=== PATIENT | female | born 1990 | race African-American/Black ===

== ENCOUNTER 2019-02-23 17:05 | Day surgery (SDC) | payer OTHER ==
[2019-02-23 17:41] VITALS: BP 140/79; TEMP 98.6
[2019-02-23 17:43] VITALS: BMI 27.6
[2019-02-23] MEDS ORDERED: hydrALAZINE 20 MG/ML VIAL SLOW IVP PRN (18:54)
--- NOTE | 2019-02-23 19:18 | ER ---
DATE OF SERVICE: 02/23/2019 PRESENTING COMPLAINT: A 35 weeks' gestation with contractions, prior section. HISTORY OF PRESENT ILLNESS: Ms. Taveras is a 28-year-old, 2, para 1 with an EDC placing her at 35 weeks' gestation. Antepartum record is not available on the unit. The patient is scheduled for repeat on March 22. She reports that she was seen in the office by Dr. Michel and checked by him and noted to be 2, 50, and -2. She denies bleeding. She denies leakage of fluid. She states she has had some lower abdominal pain and cramping throughout the day. She reports active fetus. MAILROOM COURIER HISTORY: As noted. Antepartum record not available. The patient is uncertain of her blood type or group B Streptococcus status. PAST MEDICAL HISTORY: None. PAST SURGICAL HISTORY: . ALLERGIES: NONE. MEDICATIONS: vitamins. SOCIAL HISTORY: Denies tobacco, alcohol, or IV drug use. FAMILY HISTORY: Noncontributory. REVIEW OF SYSTEMS: Noncontributory. PHYSICAL EXAMINATION: GENERAL: Black female. VITAL SIGNS: Temperature 98.6, pulse 67, respirations 18, blood pressure 140/79. HEENT: Within normal limits. LUNGS: Clear to auscultation bilaterally. HEART: Regular rhythm. ABDOMEN: Soft and nontender. 35 cm. FHTs 140s. PELVIC: Vulva without lesions. Vagina without discharge. No fluid noted. Cervix; posterior, 1 to 1-1/2, 40, and -2, cephalic, ballots with ease. EXTREMITIES: Without clubbing, cyanosis, or edema. monitoring was carried out for greater than 30 minutes. Occasional uterine irritability was noted q.5 to 15 minutes. No regular contractions were noted. Category 1 heart rate tracing noted. IMPRESSION: Discomforts of at 35 weeks' gestation. No evidence of active labor. No evidence of rupture of membranes. PLAN: Discharge home. ER precautions. Keep scheduled followup with Dr. Michel. Job ID: [id number]
== END 2019-02-23 18:59 | disposition home or self-care (01) ==
LOC: L&D/OP 17:05
PROVIDERS: ATTEND Obstetrics & Gynecology
DX: O26.893 Other specified pregnancy related conditions, third trimester (principal); R10.30 Lower abdominal pain, unspecified; Z3A.35 35 weeks gestation of pregnancy

== ENCOUNTER 2019-03-03 13:05 | Day surgery (SDC) | payer OTHER ==
[2019-03-03 13:43] VITALS: BP 138/80; TEMP 98.2; BMI 27.6
[2019-03-03] MEDS ORDERED: hydrALAZINE 20 MG/ML VIAL SLOW IVP PRN (14:08)
[2019-03-03 14:27] LABS: Bilirubin Negative (Negative); Blood, Urine Negative (Negative); Clarity Clear (Clear); Glucose, Urine (Dipstick) Normal (Negative); Leukocyte Negative Leu/uL (Negative); Nitrite Negative (Negative); Protein, Urine (Dipstick) Negative (Neg-Trace); RBC/HPF 0-3 HPF (0-3); Urobilinogen Normal mg/dL (Less than 2); WBC/HPF 0-3 HPF (0-3)
[2019-03-03 14:35] LABS: Bacteria/HPF 1+ HPF (None Seen)
[2019-03-03 14:36] LABS: Urine Culture Reflex No No
--- NOTE | 2019-03-03 22:35 | HP ---
CHIEF COMPLAINT: Right flank pain. HISTORY OF PRESENT ILLNESS: This is a 28-year-old, G2, P1, at 36 weeks and 4 days, who complains of 1-week history of progressively worsening right flank pain that radiates down to her right lower quadrant and right groin. She states it doubles her over and has a constant sensation that is sharp. She moves around and changes position and it does not help relieve the pain. Hot baths or showers do not relieve the pain. The patient has not taken Tylenol. She was seen here one week earlier and found that she had normal aches and pains of . She denies any urinary symptoms including urinary frequency, dysuria, urgency, incontinence, urinary odor, or abnormal color. She has not had any UTIs this . OB HISTORY: G2, P1, prior x1 secondary to non-reassuring heart tones. She has had good care with Dr. Michel this . She is dated by last menstrual period consistent with first trimester ultrasound. She denies any other complications of this and has had normal ultrasounds and labs. PAST MEDICAL HISTORY: Denies. PAST SURGICAL HISTORY: x1. SOCIAL HISTORY: Negative x3. FAMILY HISTORY: Noncontributory. ALLERGIES: NO KNOWN DRUG ALLERGIES. MEDICATIONS: vitamins. PHYSICAL EXAMINATION: VITAL SIGNS: Blood pressure 127/73, heart rate 89, temp 98.8, and saturation 100% on room air. GENERAL: No acute distress. CARDIAC: Regular rate and rhythm. LUNGS: Clear to auscultation bilaterally. ABDOMEN: Soft, nontender, gravid. She has some mild flank tenderness on the right side. It is not acutely tender, however. She has no rebound or guarding. MUSCULOSKELETAL: She has no muscular weakness or lower extremity edema. : On external monitor, the patient has a baseline of 140 with moderate noqe-yv-lbfi variability. Positive accelerations. No decelerations. TOCO shows no contractions. Clean-catch urinalysis shows squames and 1+ bacteria. No leukocytes, nitrites, or blood. ASSESSMENT AND PLAN: This is a 28-year-old, G2, P1, at 36 weeks and 4 days with prior section x1, presenting with renal colic. UA has no evidence of nephrolithiasis or complicated urinary tract infection. She has a benign exam. Advise patient of physiologic and anatomic changes during , predisposing patient to a right-sided symptoms including renal colic. Recommended relief of pressure on the right side by lying on the left side or maintaining position on all fours to relieve the pressure. Also, the patient can use Tylenol. The patient was given #10 of Tylenol No.3 p.r.n. severe pain and was given ER warnings. FHTs were reassuring, and the patient will follow up with Dr. Michel as scheduled. Job ID: [id number] [facility]
== END 2019-03-03 15:40 | disposition home or self-care (01) ==
LOC: L&D/OP 13:05
PROVIDERS: ATTEND Obstetrics & Gynecology
DX: O99.89 Other specified diseases and conditions complicating pregnancy, childbirth and the puerperium (principal); N23 Unspecified renal colic; O34.219 Maternal care for unspecified type scar from previous cesarean delivery; Z3A.36 36 weeks gestation of pregnancy
CPT/HCPCS: 81001; 87086; 99282

== ENCOUNTER 2019-03-17 09:55 | Inpatient (IN) | payer OTHER ==
[2019-03-17 10:19] VITALS: BMI 28.1
[2019-03-17] MEDS ORDERED: Promethazine HCl 25 MG/ML VIAL IM PRN ×4 (10:44→16:16)
[2019-03-17] MEDS ORDERED: hydrALAZINE 20 MG/ML VIAL SLOW IVP PRN (10:44)
[2019-03-17] MEDS ORDERED: Ondansetron PF 4 MG/2 ML Vial IVP PRN ×3 (10:44→16:16)
[2019-03-17] MEDS ORDERED: CEFAZOLIN 2 GM in Premix Bag 1 BAG IVPB SCH (10:45)
[2019-03-17] MEDS ORDERED: Lactated Ringer's 1,000 ML IV SCH (10:45)
[2019-03-17] MEDS ORDERED: Bicitra 30 ML UDCUP PO SCH (10:45)
[2019-03-17 10:56] LABS: Hemoglobin 13.8 g/dL (12.0-16.0); Mean Corpuscular Volume 90.2 fL (78.0-98.0); Red Blood Cell (RBC) Count 4.38 mill/uL (4.20-5.40); White Blood Cell (WBC) Count 5.3 thou/uL (4.8-10.8)
[2019-03-17 10:57] LABS: Mean Corpuscular Hemoglobin 31.5 pg (27.0-31.0); Mean Platelet Volume 9.8 fL (7.4-10.4); Platelet Count 191 thou/uL (130-400); RBC Distribution Width 11.7 % (11.5-14.5)
--- NOTE | 2019-03-17 11:44 | PDOC.LDHP ---
Labor and Delivery H&P Chief complaint: scheduled section HPI: 28 y/o at 38 and 4/7 weeks with GHTN and hx of previous , who declines TOLAC. Due date: 03/27/19 Grav: 2 Para: 1 Current complications: gestational hypertension Abnormal US findings: No Current medications: pre-keyla vitamins Previous surgical history: low tranverse CS Allergies/Adverse Reactions: Allergies Allergy/AdvReac Type Severity Reaction Status Date / Time No Known Allergies Allergy Verified 03/03/19 13:37 Social history: none - Physical Exam Vital signs reviewed and normal: yes General: NAD, resting Heart: RRR Lungs: CTAB Abdomen: gravid Extremeties: no edema FHT: category 1 - Assessment L&D Assessment: scheduled repeat section - Plan Plan: admit to L&D, to OR for section
[2019-03-17 11:50] LABS: Syphilis Antibody Nonreactive (Nonreactive); Syphilis Antibody Index 0.04 S/CO (<1.00 Non-Reactive)
[2019-03-17 11:51] LABS: HBSAg Index 0.24 S/CO (0-0.99); Hep B Surf Ag Non-Reactive S/CO (NonReactive)
[2019-03-17] MEDS ORDERED: HYDROmorphone 0.5 MG/0.5 ML SYRINGE ONE (12:02)
[2019-03-17] MEDS ORDERED: Fentanyl 100 MCG/2 ML VIAL ONE (12:02)
[2019-03-17] MEDS ORDERED: Ondansetron PF 4 MG/2 ML Vial ONE ×2 (12:07→15:41)
[2019-03-17] MEDS ORDERED: ePHEDrine/0.9% NaCl/PF SYRINGE 50 mg/10 ml ONE (12:07)
[2019-03-17] MEDS ORDERED: Oxytocin 10 UNITS/ML VIAL ONE ×2 (12:07→13:05)
[2019-03-17] MEDS ORDERED: MORPHINE 5 MG/10 ML PF VIAL ONE (12:07)
[2019-03-17] MEDS ORDERED: Naloxone HCl 0.4 mg/ml Vial IVP PRN ×2 (12:12)
[2019-03-17] MEDS ORDERED: Promethazine HCl 25 MG/ML VIAL SLOW IVP PRN (12:12)
[2019-03-17] MEDS ORDERED: Ondansetron HCl/PF 4 MG/2 ML Vial IVP PRN (12:12)
[2019-03-17] MEDS ORDERED: diphenhydrAMINE 50 MG/ML VIAL IVP PRN (12:12)
[2019-03-17] MEDS ORDERED: Naloxone HCl 0.4 mg/ml Vial IV PRN (12:12)
[2019-03-17] MEDS ORDERED: Promethazine HCl 25 MG SUPP PR PRN (12:12)
[2019-03-17] MEDS ORDERED: Communication Order-Pharmacy FS SCH (12:15)
[2019-03-17] MEDS ORDERED: Misoprostol 200 MCG TAB PR PRN (16:16)
[2019-03-17] MEDS ORDERED: Lanolin Ointment 7 GM TUBE TOP PRN (16:16)
[2019-03-17] MEDS ORDERED: diphenhydrAMINE 25 MG CAP PO PRN (16:16)
[2019-03-17] MEDS ORDERED: Bisacodyl 10 MG SUPP PR PRN (16:16)
[2019-03-17] MEDS ORDERED: NS / Oxytocin 40 units/1000ml 1,000 ML IV SCH (16:16)
[2019-03-17] MEDS: Ketorolac Tromethamine 30 MG/ML VIAL IVP PRN (19:56)
[2019-03-17] MEDS: Docusate Calcium (SURFAK) 240 MG CAP PO SCH (20:01)
[2019-03-17] MEDS: NIFEdipine XL 30 MG TAB PO SCH (20:02)
[2019-03-17] MEDS: Simethicone Chewable 80 MG TAB PO PRN (20:02)
[2019-03-18] MEDS ORDERED: Zolpidem Tartrate 5 MG TAB PO PRN (00:15)
[2019-03-18] MEDS: Ketorolac Tromethamine 30 MG/ML VIAL IVP PRN (03:49)
[2019-03-18] MEDS: HYDROcodone/Acetaminophen 5/325 mg Tablet PO PRN ×4 (03:50→20:36)
[2019-03-18] MEDS: Simethicone Chewable 80 MG TAB PO PRN ×2 (03:50→20:36)
[2019-03-18 05:39] LABS: Hemoglobin 12.6 g/dL (12.0-16.0); Mean Corpuscular HGB CONC 34.5 g/dL (32.0-36.0); Mean Corpuscular Hemoglobin 31.5 pg (27.0-31.0); Mean Corpuscular Volume 91.2 fL (78.0-98.0); Mean Platelet Volume 8.6 fL (7.4-10.4); Platelet Count 163 thou/uL (130-400); RBC Distribution Width 11.6 % (11.5-14.5); Red Blood Cell (RBC) Count 4.01 mill/uL (4.20-5.40); White Blood Cell (WBC) Count 11.6 thou/uL (4.8-10.8)
[2019-03-18] MEDS ORDERED: Measles/Mumps/Rubella 10 MCG/0.5 ML VIAL SC ONE (09:00)
[2019-03-18] MEDS ORDERED: Varicella virus, LIVE 0.5 ML VIAL SC ONE (09:00)
[2019-03-18] MEDS ORDERED: Adacel (T-DAP) 0.5 ML SYRINGE IM ONE (09:00)
[2019-03-18] MEDS: Prenatal Vitamin 1 TAB PO SCH (09:27)
[2019-03-18] MEDS: Docusate Calcium (SURFAK) 240 MG CAP PO SCH ×2 (09:27→20:36)
--- NOTE | 2019-03-18 13:26 | PDOC.PP ---
Post Progress Note Post Day #: 1 PO intake tolerated: yes Flatus: yes Ambulation: yes Vital Signs (12 hours) Temp Pulse Resp BP Pulse Ox 03/18/19 12:15 98.6 F 97 20 125/74 03/18/19 08:34 98.8 F 91 20 134/84 99 03/18/19 03:55 81 16 138/87 Weight Weight 159 lb - Physical Examination General: NAD Cardiovascular: no m/r/g, RRR Respiratory: clear to auscultation bilaterally, non-labored breathing Abdominal: + bowel sounds, lochia, no distention Extremities: negative homans (B) Skin: CS incision dry & intact, no rash Neurological: no gross focal deficits Psychiatric: A&Ox3, normal affect Result Diagrams: 03/18/19 05:30 Additional Labs: Post Labs Blood Type B POSITIVE 03/17/19 11:06 Hep Bs Antigen Non-Reactive S/CO (NonReactive) 03/17/19 10:42 - Assessment/Plan Patient now on procardia xl 30mg. Will plan to continue at home, unless BP changes dramatically up or down before dc home.
[2019-03-18] MEDS: Ibuprofen 800 MG TAB PO SCH ×2 (14:29→23:21)
[2019-03-18] MEDS: NIFEdipine XL 30 MG TAB PO SCH (20:36)
[2019-03-19] MEDS: Ibuprofen 800 MG TAB PO SCH ×3 (05:38→21:27)
[2019-03-19] MEDS: Docusate Calcium (SURFAK) 240 MG CAP PO SCH ×2 (09:19→21:27)
[2019-03-19] MEDS: Prenatal Vitamin 1 TAB PO SCH (09:19)
[2019-03-19] MEDS: HYDROcodone/Acetaminophen 5/325 mg Tablet PO PRN ×3 (09:20→20:25)
[2019-03-19] MEDS: Simethicone Chewable 80 MG TAB PO PRN (21:28)
[2019-03-19] MEDS ORDERED: Lanolin Ointment 7 GM TUBE TOP PRN (22:43)
[2019-03-19] MEDS ORDERED: Milk Of Magnesia 30 ML UDCUP PO PRN (22:43)
[2019-03-19] MEDS ORDERED: Benzocaine-Menthol 82.5 ML CAN TOP PRN (22:43)
[2019-03-19] MEDS ORDERED: Zolpidem Tartrate 5 MG TAB PO PRN (22:43)
[2019-03-19] MEDS ORDERED: Acetaminophen/Codeine 30-300mg Tablet PO PRN ×2 (22:43)
[2019-03-19] MEDS ORDERED: hydrALAZINE 20 MG/ML VIAL SLOW IVP PRN (22:43)
[2019-03-19] MEDS ORDERED: Misoprostol 200 MCG TAB VAG PRN (22:43)
[2019-03-19] MEDS ORDERED: Adacel (T-DAP) 0.5 ML SYRINGE IM ONE (22:43)
[2019-03-19] MEDS ORDERED: diphenhydrAMINE 25 MG CAP PO PRN (22:43)
[2019-03-19] MEDS ORDERED: Preparation H Ointment 28 GM TUBE PR PRN (22:43)
[2019-03-19] MEDS ORDERED: Bisacodyl 10 MG SUPP PR PRN (22:43)
[2019-03-19] MEDS ORDERED: Ondansetron PF 4 MG/2 ML Vial IVP PRN (22:43)
[2019-03-19] MEDS ORDERED: NS / Oxytocin 40 units/1000ml 1,000 ML IV SCH (22:45)
[2019-03-19] MEDS ORDERED: Ampicillin/Sulbactam 3 GM in Sodium Chloride 0.9% 100 ML IVPB SCH (23:59)
[2019-03-20] MEDS: NIFEdipine XL 30 MG TAB PO SCH (00:19)
[2019-03-20] MEDS: HYDROcodone/Acetaminophen 5/325 mg Tablet PO PRN (00:20)
[2019-03-20] MEDS ORDERED: Lanolin Ointment 7 GM TUBE TOP PRN (05:10)
[2019-03-20] MEDS ORDERED: NS / Oxytocin 40 units/1000ml 1,000 ML IV SCH (05:15)
[2019-03-20] MEDS ORDERED: Ibuprofen 800 MG TAB PO SCH ×2 (06:00)
[2019-03-20] MEDS ORDERED: Ferrous Sulfate 325 MG TAB PO SCH (08:00)
[2019-03-20] MEDS ORDERED: Prenatal Vitamin 1 TAB PO SCH ×2 (09:00)
[2019-03-20] MEDS ORDERED: Docusate Calcium (SURFAK) 240 MG CAP PO SCH ×2 (09:00)
[2019-03-20 10:18] VITALS: BP 129/86; TEMP 98.7
--- NOTE | 2019-03-23 11:52 | OP ---
DATE OF PROCEDURE: 03/17/2019 TIME OF SERVICE: 1305 hours, Central Standard Time. PREOPERATIVE DIAGNOSIS: Intrauterine at 38 weeks and 4 days with a new diagnosis of gestational hypertension and repeat section desired with declined trial of labor after . POSTOPERATIVE DIAGNOSES: Intrauterine at 38 weeks and 4 days with a new diagnosis of gestational hypertension and repeat section desired with declined trial of labor after . Suspected uterine fibroids. PROCEDURE PERFORMED: 1. Repeat low transverse section. 2. Myomectomy of single fibroid. FINDINGS: One small anterior fundal uterine fibroid excised and sent to pathology. A viable male infant weighing 2395 g or 5 pounds 4 ounces. Apgars of 7 and 9. QUANTITATIVE BLOOD LOSS: 440 mL. COMPLICATIONS: None. DETAILS OF THE PROCEDURE: The patient was consented and taken back to the operating room where spinal anesthesia was found to be adequate. She was then prepped and draped in the normal sterile fashion. A timeout was performed by the entire operative team. The incision was then marked with a marking pen tested using sharp pickups. An incision was then made with a scalpel. The incision was carried through the adipose tissue down to the underlying rectus fascia using both sharp dissection as well as cautery. Once the fascia was identified, it was incised in the midline and then the fascial incision was carried through in both lateral directions using sharp as well as cautery dissection techniques. Next, the superior aspect of the rectus fascia was grasped with 2 Nieves clamps, which was tented up and the rectus muscles were dissected off using blunt dissection as well as cautery dissection. Similarly, the inferior aspect of the fascial incision was grasped with 2 Nieves clamps, tented up and the rectus muscles were dissected off bluntly as well as sharply. Next, the rectus muscles were in the midline and the peritoneum identified. The peritoneum was then carefully grasped with 2 hemostats and entered sharply. The peritoneal incision was extended superiorly and inferiorly and bladder blade was placed in the lower abdomen. At this point, the uterus was identified and the bladder flap was then developed using pickups with teeth as well as Metzenbaum scissors in both lateral directions. The bladder flap was then dissected downwards using the print line operator's finger as well as Metzenbaum scissors. The bladder blade was replaced. The lower uterine segment was then identified and entered sharply using a clean scalpel. The uterine incision was then dissected downwards until thin layer of muscle remained and this was entered bluntly using a hemostat to avoid any injury to the baby. The uterine incision was then stretched using two fingers in both lateral directions. An amniotomy was performed artificially using a hemostat and the baby was delivered using fundal pressure in a gentle fashion. Once out, the baby's mouth and nose were bulb suctioned, cord clamped and cut, and the baby was handed to waiting attendants. Next, the uterus was exteriorized, cleared of all clots and debris and the uterine incision was repaired with #1 Monocryl in a running locking fashion. A 2nd suture of the same type was used to obtain complete hemostasis at the uterine incision. The bladder flap was reapproximated using 3-0 Monocryl. Next, patient's left and right adnexa were inspected and appeared to be within normal limits. The posterior cul-de-sac was blotted dry and hemostasis assured. One more look at the uterine incision demonstrated hemostasis. Next, the uterus was replaced back within the abdomen. The peritoneum was reapproximated using 2-0 Monocryl without difficulty. The rectus muscles were then allowed to come back together and 0 chromic was used to aid in reapproximation of the muscle as necessary. The rectus fascia was then reapproximated in a running fashion using 0 Vicryl suture. The adipose tissue was then examined and appeared to be well approximated without any obvious separations. Finally, the skin was reapproximated with 3-0 Monocryl on a Hugo needle without difficulty and Dermabond adhesive was applied to the skin. Once the glue was dry, the drapes were removed and the patient was transferred to an ambulatory bed where she was taken to recovery awake and in stable condition. Sponge, lap, and needle counts were correct x3. ADDENDUM: After closure of the uterus, inspection of the uterus revealed a single lesion near the anterior fundal region of the uterus. This was likely consistent with a uterine fibroid, but a definitive diagnosis could not be made visually. The lesion was excised using sharp as well as Bovie cautery dissection technique. Hemostasis was assured in that area prior to continuation of the surgery. Job ID: [id number]
== END 2019-03-20 13:35 | disposition home or self-care (01) | DRG 788 ==
LOC: L&D 09:55 → 3SW 18:38
PROVIDERS: ADMIT Obstetrics & Gynecology; ATTEND Obstetrics & Gynecology
PROC: 10D00Z1 Extraction of Products of Conception, Low, Open Approach (ICD-10-PCS; principal; 2019-03-18)
PROC: 0UB90ZZ Excision of Uterus, Open Approach (ICD-10-PCS; 2019-03-18)
DX: O34.211 Maternal care for low transverse scar from previous cesarean delivery (principal); Z3A.38 38 weeks gestation of pregnancy; Z37.0 Single live birth; O13.4 Gestational [pregnancy-induced] hypertension without significant proteinuria, complicating childbirth; D25.9 Leiomyoma of uterus, unspecified; O34.13 Maternal care for benign tumor of corpus uteri, third trimester
CPT/HCPCS: 36415; 51702; 85027; 86780; 86850; 86900; 86901; 87340; 88305; J1170; J1200; J1885; J2274; J2405; J2590; J3010; Q0163

== ENCOUNTER 2021-03-24 08:34 | Emergency (ER) | payer BC, OTHER ==
[2021-03-24 09:14] LABS: #Basophils 0.1 thou/uL (0.0-0.2); #Lymphocytes 1.4 thou/uL (1.20-3.40); #Monocytes 0.3 thou/uL (0.11-0.59); #Neutrophils 4.7 thou/uL (1.40-6.50); %Basophils 0.8 % (0.0-1.0); %Eosinophils 0.2 % (0.0-10.0); %Lymphocytes 21.9 % (21.0-51.0); %Monocytes 4.9 % (0.0-10.0); %Neutrophils 72.1 % (42.0-75.0); Hemoglobin 13.2 g/dL (12.0-16.0); Mean Corpuscular HGB CONC 32.7 g/dL (32.0-36.0); Mean Corpuscular Hemoglobin 29.9 pg (27.0-31.0); Mean Corpuscular Volume 91.3 fL (78.0-98.0); Mean Platelet Volume 6.8 fL (7.4-10.4); Platelet Count 311 thou/uL (130-400); Red Blood Cell (RBC) Count 4.41 mill/uL (4.20-5.40); White Blood Cell (WBC) Count 6.6 thou/uL (4.8-10.8)
[2021-03-24 09:37] LABS: ALT (SGPT) 57 U/L (8-55); AST (SGOT) 135 U/L (5-34); Alkaline Phosphatase 80 U/L (40-110); Anion Gap 13 mmol/L (10-20); BUN (Urea Nitrogen) 12 mg/dL (7.0-18.7); Bilirubin, Total 0.4 mg/dL (0.2-1.2); Calc. Creatinine Clearance 0 mL/min (70-130); Calcium 9.2 mg/dL (7.8-10.44); Carbon Dioxide 23 mmol/L (22-29); Chloride 108 mmol/L (98-107); Globulin 2.8 g/dL (2.4-3.5); Glucose 109 mg/dL (70-105); Lipase 36 U/L (8-78); Potassium 3.7 mmol/L (3.5-5.1); Protein, Total 6.8 g/dL (6.0-8.3); Sodium 140 mmol/L (136-145)
[2021-03-24 09:55] LABS: BHCG - Serum Negative (NEGATIVE); Pregs Control Background? CLEAR/WHITE (CLR/WHITE); Pregs Control Bar Appear? YES (CONTROL BAR)
[2021-03-24] MEDS ORDERED: Iopamidol-370 76% 500 ML 1 ML ONE (10:29)
[2021-03-24] MEDS ORDERED: Mag-Al 1200 mg/1200 mg/30 ML UDCUP ONE (11:46)
[2021-03-24] MEDS ORDERED: Lidocaine Viscous Sol 2% 15 ml UD Cup ONE (11:46)
[2021-03-24 12:11] LABS: Bilirubin Negative (Negative); Blood, Urine Negative (Negative); Glucose, Urine (Dipstick) Negative (Negative); Ketone, Urine Negative (Negative); Leukocyte Negative (Negative); Nitrite Negative (Negative); Protein, Urine (Dipstick) Trace mg/dL (Neg-Trace); Specific Gravity, Urine 1.025 (1.005-1.030)
[2021-03-24 12:15] LABS: Clarity Hazy (Clear)
[2021-03-24 12:34] LABS: RBC/HPF None Seen HPF (0-3); Squamous Epithelial 0-3 HPF (0-3); WBC/HPF 0-3 HPF (0-3)
== END 2021-03-24 12:25 | disposition home or self-care (01) ==
LOC: ERS 08:34
DX: K52.9 Noninfective gastroenteritis and colitis, unspecified (principal); N83.8 Other noninflammatory disorders of ovary, fallopian tube and broad ligament; R74.01 Elevation of levels of liver transaminase levels
CPT/HCPCS: 36415; 74177; 80053; 81003; 83690; 84703; 85025; Q9967